=== PATIENT | female | born 1975 | race Two or more races ===

== ENCOUNTER 2021-04-26 00:06 | Emergency (ER) | payer MEDICAID, OTHER ==
[~2021-04-26] VITALS: Ht 160 cm; Wt 81.6 kg
[2021-04-26 00:10] VITALS: BP 166/82
[2021-04-26] MEDS ORDERED: cefTRIAXone SOD 1,000 MG VL IM ONE (06:30)
[2021-04-26] MEDS ORDERED: AMOX500C2 PO (06:41)
== END 2021-04-26 06:58 | disposition home or self-care (01) ==
LOC: ER 00:09
DX: J02.9 Acute pharyngitis, unspecified (principal); R21 Rash and other nonspecific skin eruption
CPT/HCPCS: 96372; 99283; J0696